=== PATIENT | male | born 1945 | race American Indian/Alaskan Native ===

== ENCOUNTER 2018-02-10 13:11 | Day surgery (SDC) | payer MEDICARE, OTHER ==
[~2018-02-10] VITALS: Ht 167.6 cm; Wt 99.4 kg
[2018-02-10] MEDS ORDERED: FENO145 (13:47)
[2018-02-10] MEDS ORDERED: SIMV80 (13:47)
[2018-02-10] MEDS ORDERED: TAMS.4ER (13:48)
[2018-02-10] MEDS ORDERED: AMLO5 (13:48)
[2018-02-10] MEDS ORDERED: SITA100T2 (13:48)
[2018-02-10] MEDS ORDERED: METF500C (13:49)
[2018-02-10] MEDS ORDERED: Avodart0.5 MG (13:49)
[2018-02-10] MEDS ORDERED: RAMI5 (13:50)
[2018-02-10] MEDS ORDERED: Lo-Dose Aspirin81 MG (13:50)
== END 2018-02-10 15:20 | disposition home or self-care (01) ==
LOC: ORSCSDS 13:11
PROVIDERS: Internal Medicine Gastroenterology
PROC: 0DBM8ZX Excision of Descending Colon, Via Natural or Artificial Opening Endoscopic, Diagnostic (ICD-10-PCS; principal; 2018-02-10 14:30)
PROC: 0DBN8ZX Excision of Sigmoid Colon, Via Natural or Artificial Opening Endoscopic, Diagnostic (ICD-10-PCS; principal; 2018-02-10 14:30)
DX: Z12.11 Encounter for screening for malignant neoplasm of colon (principal); D12.4 Benign neoplasm of descending colon; D12.5 Benign neoplasm of sigmoid colon; K64.8 Other hemorrhoids; K57.30 Diverticulosis of large intestine without perforation or abscess without bleeding; Z80.0 Family history of malignant neoplasm of digestive organs; Z86.010 Personal history of colon polyps; E11.9 Type 2 diabetes mellitus without complications; G47.33 Obstructive sleep apnea (adult) (pediatric); Z87.891 Personal history of nicotine dependence; I10 Essential (primary) hypertension; Z79.84 Long term (current) use of oral hypoglycemic drugs; Z79.899 Other long term (current) drug therapy
CPT/HCPCS: 82947; 88305; J7120

== ENCOUNTER 2022-03-16 23:23 | Emergency (ER) | payer MEDICARE, OTHER ==
[~2022-03-16] VITALS: Ht 167.6 cm; Wt 90.7 kg
[~2022-03-16 23:23] MED LIST: AMLO5; Avodart0.5 MG; FENO145; Lo-Dose Aspirin81 MG; METF500C; RAMI5; SIMV80; SITA100T2; TAMS.4ER
[2022-03-17 00:06] LABS: Source, Urine Clean Catch
[2022-03-17 00:13] LABS: Bilirubin, Urine Neg (Neg); Blood, Urine 5+ (Neg); Glucose Qualitative, Urine Neg (Neg); Ketones, Urine Neg (Neg); Leukocyte Esterase, Urine 2+ (Neg); Nitrite, Urine Neg (Neg); Protein, Urine 2+ (Neg); Urobilinogen, Urine NORM (Normal); pH, Urine 6.5 (5.0-8.0)
[2022-03-17 00:24] LABS: Appearance, Urine Hazy (Clear); Color, Urine Red (P-Yellow)
[2022-03-17 00:25] LABS: Bacteria Rare /hpf; Red Blood Cells, Urine TNTC /hpf (0-2); Squamous Epithelial Cells Not Seen /hpf (Few)
[2022-03-17] MEDS ORDERED: CEFD300 PO (00:58)
== END 2022-03-17 01:10 | disposition home or self-care (01) ==
LOC: ER 23:23
PROVIDERS: Physician Assistant
DX: N39.0 Urinary tract infection, site not specified (principal); R31.9 Hematuria, unspecified; E11.9 Type 2 diabetes mellitus without complications; Z79.899 Other long term (current) drug therapy; Z79.84 Long term (current) use of oral hypoglycemic drugs; Z79.82 Long term (current) use of aspirin
CPT/HCPCS: 81001; 87077; 87086; 87186; 99283; A9270

== ENCOUNTER 2022-11-07 11:27 | Emergency (ER) | payer MEDICARE, OTHER ==
[~2022-11-07] VITALS: Ht 167.6 cm; Wt 99.8 kg
[~2022-11-07 11:27] MED LIST changes: +CEFD300 PO
[2022-11-07] MEDS ORDERED: BACLOFEN5 M1 PO (12:43)
== END 2022-11-07 12:52 | disposition home or self-care (01) ==
LOC: ER 11:27
DX: M62.830 Muscle spasm of back (principal); E11.9 Type 2 diabetes mellitus without complications; Z98.890 Other specified postprocedural states; Z79.899 Other long term (current) drug therapy; Z79.84 Long term (current) use of oral hypoglycemic drugs; Z87.891 Personal history of nicotine dependence
CPT/HCPCS: A9270

== ENCOUNTER → 2022-12-08 | Outpatient (CLI) | payer MEDICARE, OTHER ==
[~2022-12-08] MED LIST changes: +BACLOFEN5 M1 PO; +CEPH500 PO
[2022-12-08 13:32] LABS: Hematocrit 41.3 % (37.0-53.0); Mean Corpuscular HGB 32.6 pg (26.0-34.0); Mean Corpuscular HGB Conc 33.9 g/dL (31.5-36.5); Mean Corpuscular Volume 96 fL (80-100); NRBC ABSOLUTE 0.02 K/mm3 (0.00-0.02); NRBC Auto 0.1 /100 WBC (0.0-0.2); RDW Coefficient Variation 14.9 % (11.7-14.2); RDW Standard Deviation 51.9 fL (35.1-46.3); Red Blood Cell Count 4.29 M/mm3 (4.30-5.90); White Blood Cell Count 25.67 K/mm3 (4.00-11.30)
[2022-12-08 13:42] LABS: Albumin/Globulin Ratio 0.7 (0.8-1.8); Bilirubin, Total 0.8 mg/dL (0.1-1.0); Bun/Creatinine Ratio 14.2 (12.0-20.0); Calcium, Blood 8.9 mg/dL (8.5-10.1); Creatinine, Blood 2.26 mg/dL (0.60-1.20); Globulin, Blood 4.4 g/dL (2.2-4.0); Potassium, Blood 3.5 mmol/L (3.5-5.5); Total Protein, Blood 7.4 g/dL (6.4-8.2)
[2022-12-08 13:46] LABS: Magnesium, Blood 0.9 mg/dL (1.6-2.4)
[2022-12-08 14:21] LABS: BAND PERCENT MAN 18 % (0-8); BASOPHILS PERCENT MAN 0 % (0-2); EOSINOPHILS PERCENT MAN 0 % (0-6); LYMPHOCYTES ABSOLUTE MAN 0.25 K/mm3 (0.84-5.20); LYMPHOCYTES PERCENT MAN 1 % (21-46); METAMYELOCYTE ABSOLUTE MAN 1.79 K/mm3 (0.00-0.00); METAMYELOCYTE PERCENT MAN 7 % (0-0); MONOCYTES ABSOLUTE MAN 0.77 K/mm3 (0.16-1.47); MONOCYTES PERCENT MAN 3 % (4-13); NEUTROPHILS ABSOLUTE MAN 22.84 K/mm3 (1.96-9.15); SEG NEUTROPHILS PERCENT MAN 71 % (41-73); TOTAL CELLS COUNTED 100
[2022-12-08 14:33] LABS: Mean Platelet Volume 10.4 fL (9.1-12.4); Platelet Count 107 K/mm3 (150-400)
== END | disposition home or self-care (01) ==
LOC: LAB 13:25 → LAB SHORT 13:25
PROVIDERS: Physician Assistant
DX: R25.2 Cramp and spasm (principal)
CPT/HCPCS: 80053; 83735; 85025

== ENCOUNTER → 2022-12-09 | Outpatient (CLI) | payer MEDICARE, OTHER ==
[2022-12-09 12:06] LABS: Hematocrit 39.9 % (37.0-53.0); Hemoglobin 13.5 g/dL (13.5-17.5); Mean Corpuscular HGB 32.1 pg (26.0-34.0); Mean Corpuscular HGB Conc 33.8 g/dL (31.5-36.5); Mean Corpuscular Volume 95 fL (80-100); RDW Coefficient Variation 14.6 % (11.7-14.2); RDW Standard Deviation 50.5 fL (35.1-46.3); Red Blood Cell Count 4.21 M/mm3 (4.30-5.90); White Blood Cell Count 21.19 K/mm3 (4.00-11.30)
[2022-12-09 12:15] LABS: Albumin, Blood 2.9 g/dL (3.4-5.0); Albumin/Globulin Ratio 0.7 (0.8-1.8); Bilirubin, Total 0.5 mg/dL (0.1-1.0); Bun/Creatinine Ratio 23.1 (12.0-20.0); Calcium, Blood 8.5 mg/dL (8.5-10.1); Creatinine, Blood 1.82 mg/dL (0.60-1.20); Globulin, Blood 4.2 g/dL (2.2-4.0); Magnesium, Blood 1.3 mg/dL (1.6-2.4); Phosphorus, Blood 2.1 mg/dL (2.5-4.9); Potassium, Blood 2.9 mmol/L (3.5-5.5); Total Protein, Blood 7.1 g/dL (6.4-8.2)
[2022-12-09 13:06] LABS: BAND PERCENT MAN 9 % (0-8); BASOPHILS ABSOLUTE MAN 0.21 K/mm3 (0.00-0.23); BASOPHILS PERCENT MAN 1 % (0-2); EOSINOPHILS ABSOLUTE MAN 0.63 K/mm3 (0.00-0.68); EOSINOPHILS PERCENT MAN 3 % (0-6); LYMPHOCYTES ABSOLUTE MAN 1.48 K/mm3 (0.84-5.20); LYMPHOCYTES PERCENT MAN 7 % (21-46); MONOCYTES ABSOLUTE MAN 1.69 K/mm3 (0.16-1.47); MONOCYTES PERCENT MAN 8 % (4-13); NEUTROPHILS ABSOLUTE MAN 17.16 K/mm3 (1.96-9.15); SEG NEUTROPHILS PERCENT MAN 72 % (41-73); TOTAL CELLS COUNTED 100
[2022-12-09 13:10] LABS: Platelet Count 126 K/mm3 (150-400)
== END | disposition home or self-care (01) ==
LOC: LAB SHORT 12:00 → LAB 12:00
PROVIDERS: Emergency Medicine
DX: E83.42 Hypomagnesemia (principal)
CPT/HCPCS: 80053; 83735; 84100; 85025

== ENCOUNTER 2024-03-14 08:09 | Emergency (ER) | payer MEDICARE, OTHER ==
[~2024-03-14] VITALS: Ht 167.6 cm; Wt 104.3 kg
[~2024-03-14 08:09] MED LIST changes: +ALFU10 PO; +ALLEGRA ALLERG180 MG PO; +FURO20 PO; +IBU800 MG PO; +PIOG15 PO; +SILD50TA PO; +TRAM50 PO; +XARELTO20 MG PO
[2024-03-14] MEDS ORDERED: Albuterol 2.5 MG/3 ML VIAL INH ONE (08:40)
[2024-03-14 08:51] LABS: BASOPHILS ABSOLUTE AUTO 0.03 K/mm3 (0.00-0.23); BASOPHILS PERCENT AUTO 1 % (0-2); EOSINOPHILS ABSOLUTE AUTO 0.33 K/mm3 (0.00-0.68); EOSINOPHILS PERCENT AUTO 5 % (0-6); Hematocrit 48.4 % (37.0-53.0); Hemoglobin 15.8 g/dL (13.5-17.5); IMMATURE GRAN ABSOLUTE AUTO 0.03 K/mm3 (0.00-0.10); IMMATURE GRAN PERCENT AUTO 1 % (0-1); LYMPHOCYTES ABSOLUTE AUTO 0.61 K/mm3 (0.84-5.20); LYMPHOCYTES PERCENT AUTO 10 % (21-46); MONOCYTES ABSOLUTE AUTO 0.53 K/mm3 (0.16-1.47); MONOCYTES PERCENT AUTO 8 % (4-13); Mean Corpuscular HGB 32.2 pg (26.0-34.0); Mean Corpuscular HGB Conc 32.6 g/dL (31.5-36.5); Mean Corpuscular Volume 99 fL (80-100); Mean Platelet Volume 11.9 fL (9.1-12.4); NEUTROPHILS ABSOLUTE AUTO 4.81 K/mm3 (1.96-9.15); NEUTROPHILS PERCENT AUTO 76 % (41-73); Platelet Count 166 K/mm3 (150-400); RDW Coefficient Variation 14.8 % (11.7-14.2); RDW Standard Deviation 54.4 fL (35.1-46.3); Red Blood Cell Count 4.91 M/mm3 (4.30-5.90); White Blood Cell Count 6.34 K/mm3 (4.00-11.30)
[2024-03-14 09:20] LABS: Albumin, Blood 3.5 g/dL (3.4-5.0); Albumin/Globulin Ratio 0.9 (0.8-1.8); Bilirubin, Total 0.6 mg/dL (0.1-1.0); Bun/Creatinine Ratio 12.5 (12.0-20.0); Calcium, Blood 8.8 mg/dL (8.5-10.1); Creatinine, Blood 0.96 mg/dL (0.60-1.20); Globulin, Blood 4.1 g/dL (2.2-4.0); Potassium, Blood 3.1 mmol/L (3.5-5.5); Total Protein, Blood 7.6 g/dL (6.4-8.2)
[2024-03-14] MEDS ORDERED: Magnesium Sulf 2 GM/Water 50ML 50 ML IV ONE (09:50)
[2024-03-14 10:10] LABS: Influenza A, PCR NEGATIVE (NEGATIVE); Influenza B, PCR NEGATIVE (NEGATIVE); Resp Syncytial Virus, PCR NEGATIVE (NEGATIVE); SARS-Cov-2 (COVID-19) PCR, MMC NEGATIVE (NEGATIVE)
[2024-03-14] MEDS ORDERED: MethylPREDNISolone Sod Succ 125 MG Vial IV ONE (13:20)
[2024-03-14] MEDS ORDERED: PRED20 PO (13:23)
[2024-03-14 13:58] VITALS: BP 134/70
== END 2024-03-14 14:00 | disposition home or self-care (01) ==
LOC: ER 08:09
PROVIDERS: Emergency Medicine
DX: J40 Bronchitis, not specified as acute or chronic (principal); E11.9 Type 2 diabetes mellitus without complications; Z87.891 Personal history of nicotine dependence; Z79.899 Other long term (current) drug therapy; Z79.82 Long term (current) use of aspirin; Z79.84 Long term (current) use of oral hypoglycemic drugs
CPT/HCPCS: 0241U; 71046; 71260; 80053; 83880; 84484; 85025; 93005; 93010; 94640; 94664; 96365-59; 96375; 99285-25; J2919; J3475; Q9967

== ENCOUNTER 2024-10-30 14:13 | Observation (INO) | payer MEDICARE, OTHER ==
[~2024-10-30] VITALS: Ht 170.2 cm; Wt 100.3 kg
[~2024-10-30 14:13] MED LIST changes: -ASPI81CH PO; -Simvastatin80 MG PO
[2024-10-30 14:52] LABS: BASOPHILS ABSOLUTE AUTO 0.03 K/mm3 (0.00-0.23); BASOPHILS PERCENT AUTO 0 % (0-2); EOSINOPHILS ABSOLUTE AUTO 0.01 K/mm3 (0.00-0.68); EOSINOPHILS PERCENT AUTO 0 % (0-6); Hematocrit 42.9 % (37.0-53.0); Hemoglobin 15.2 g/dL (13.5-17.5); IMMATURE GRAN ABSOLUTE AUTO 0.07 K/mm3 (0.00-0.10); IMMATURE GRAN PERCENT AUTO 1 % (0-1); LYMPHOCYTES ABSOLUTE AUTO 0.37 K/mm3 (0.84-5.20); LYMPHOCYTES PERCENT AUTO 4 % (21-46); MONOCYTES ABSOLUTE AUTO 0.25 K/mm3 (0.16-1.47); MONOCYTES PERCENT AUTO 3 % (4-13); Mean Corpuscular HGB 34.4 pg (26.0-34.0); Mean Corpuscular HGB Conc 35.4 g/dL (31.5-36.5); Mean Corpuscular Volume 97 fL (80-100); NEUTROPHILS PERCENT AUTO 92 % (41-73); Platelet Count 204 K/mm3 (150-400); RDW Coefficient Variation 17.3 % (11.7-14.2); RDW Standard Deviation 60.6 fL (35.1-46.3); Red Blood Cell Count 4.42 M/mm3 (4.30-5.90); White Blood Cell Count 8.93 K/mm3 (4.00-11.30)
[2024-10-30 14:59] LABS: Mean Platelet Volume 13.1 fL (9.1-12.4)
[2024-10-30] MEDS ORDERED: Ondansetron HCl 2 MG / ML 2ML Vial IV ONE (15:05)
[2024-10-30] MEDS ORDERED: Morphine Sulfate 4 MG/1 ML Injection IV ONE (15:25)
[2024-10-30 16:48] LABS: Albumin, Blood 3.4 g/dL (3.4-5.0); Albumin/Globulin Ratio 0.9 (0.8-1.8); Bilirubin, Total 0.7 mg/dL (0.1-1.0); Bun/Creatinine Ratio 18.2 (12.0-20.0); Calcium, Blood 9.1 mg/dL (8.5-10.1); Creatinine, Blood 0.93 mg/dL (0.60-1.20); Globulin, Blood 3.8 g/dL (2.2-4.0); Total Protein, Blood 7.2 g/dL (6.4-8.2)
[2024-10-30] MEDS ORDERED: Potassium Chloride 20 MEQ TabCR PO ONE ×2 (18:05→20:25)
[2024-10-30] MEDS ORDERED: FLU VACC TS2024-25(6MOS UP)/PF 45 MCG/0.5 ML SYRINGE IM SCH (20:15)
[2024-10-30] MEDS ORDERED: FentaNYL Citrate 50 MCG/ML 2 ML Injection IV PRN (20:15)
[2024-10-30] MEDS ORDERED: NS 1,000 ML IV SCH (20:15)
[2024-10-30] MEDS ORDERED: Ondansetron HCl 2 MG / ML 2ML Vial IV PRN (20:20)
[2024-10-30] MEDS ORDERED: Nitroglycerin 0.4 MG SUBL SL PRN (20:20)
[2024-10-30] MEDS ORDERED: Mag Hydrox/Al Hydrox/Simeth 18 ML,Lidocaine 2% Viscous Soln 9 ML,Atropine/Scopalam/Hyos... PO PRN (20:25)
[2024-10-30] MEDS ORDERED: Enoxaparin 40 MG/0.4 ML SYR SC SCH (21:00)
[2024-10-30 21:51] VITALS: BP 160/93
[2024-10-31 02:09] LABS: BASOPHILS ABSOLUTE AUTO 0.02 K/mm3 (0.00-0.23); BASOPHILS PERCENT AUTO 0 % (0-2); EOSINOPHILS ABSOLUTE AUTO 0.02 K/mm3 (0.00-0.68); EOSINOPHILS PERCENT AUTO 0 % (0-6); Hematocrit 41.4 % (37.0-53.0); Hemoglobin 14.1 g/dL (13.5-17.5); IMMATURE GRAN ABSOLUTE AUTO 0.06 K/mm3 (0.00-0.10); IMMATURE GRAN PERCENT AUTO 1 % (0-1); LYMPHOCYTES ABSOLUTE AUTO 0.73 K/mm3 (0.84-5.20); LYMPHOCYTES PERCENT AUTO 7 % (21-46); MONOCYTES ABSOLUTE AUTO 0.73 K/mm3 (0.16-1.47); MONOCYTES PERCENT AUTO 7 % (4-13); Mean Corpuscular HGB 34.3 pg (26.0-34.0); Mean Corpuscular HGB Conc 34.1 g/dL (31.5-36.5); Mean Corpuscular Volume 101 fL (80-100); NEUTROPHILS ABSOLUTE AUTO 9.08 K/mm3 (1.96-9.15); NEUTROPHILS PERCENT AUTO 85 % (41-73); Platelet Count 165 K/mm3 (150-400); RDW Coefficient Variation 15.8 % (11.7-14.2); Red Blood Cell Count 4.11 M/mm3 (4.30-5.90); White Blood Cell Count 10.64 K/mm3 (4.00-11.30)
[2024-10-31 02:19] LABS: Albumin, Blood 3.2 g/dL (3.4-5.0); Albumin/Globulin Ratio 0.9 (0.8-1.8); Bilirubin, Total 0.6 mg/dL (0.1-1.0); Calcium, Blood 8.6 mg/dL (8.5-10.1); Creatinine, Blood 0.88 mg/dL (0.60-1.20); Globulin, Blood 3.5 g/dL (2.2-4.0); Potassium, Blood 3.3 mmol/L (3.5-5.5); Total Protein, Blood 6.7 g/dL (6.4-8.2)
[2024-10-31 02:38] VITALS: BP 164/93
[2024-10-31] MEDS ORDERED: Magnesium Sulf 2 GM/Water 50ML 50 ML IV ONE (04:30)
--- NOTE | 2024-10-31 07:12 | NUR ---
Shift Summary Pt admitted to this unit from ED for chest pain. EKG from [place] showed afib at 73, troponins were 60-62. He was given morphene in the ED and felt better upon arrival but this AM his chest pain has returned. I gave PRN SL Nitro x2 tablets and fentanyl which is showing little relief. He is on tele currently running sinus [place] in the 50's. When listening to his heart the rythm sounds irregular. Information and concerns passed onto oncoming nurse. Pt is AOx4, 1 SBA to [facility].
[2024-10-31 07:28] VITALS: BP 137/77
[2024-10-31] MEDS ORDERED: Insulin Human Lispro 100 Units/ML 3ML Syringe SC SCH (07:30)
--- NOTE | 2024-10-31 07:31 | NUR ---
PT EXPERIENCING INCREASED CHEST PAIN AFTER RECIEVING NITRO AND FENTANYL. PER SPOUSE MORPHINE WAS GIVEN IN ER AND SEEMED TO PROVIDE MUCH RELIEF. DR. CABLELO NOTIFIED, MD TO ORDER PAIN MEDICATION.
[2024-10-31] MEDS ORDERED: Morphine Sulfate 4 MG/1 ML Injection IV PRN (07:35)
--- NOTE | 2024-10-31 08:00 | NUR ---
PT REASSESSED AFTER MORPHINE ADMIN. PT IS NOW RESTING WITH EYES CLOSED, PRIOR TO THIS PT WAS TOSSING AND TURNING IN BED. CONT PULSE OX SET UP IN ROOM. PT REPORTS CPAP USE AT NIGHT. O2 ATTACHED TO WALL IF NEEDED
[2024-10-31] MEDS ORDERED: Lisinopril 20 MG Tab PO SCH (09:00)
--- NOTE | 2024-10-31 16:43 | NUR ---
SUMMARY PT DENIES CHEST PAIN AT THE TIME OF THIS NOTE, PT IS TEARFUL AND EXPRESSES ANXIETY OVER HIS CURRENT SITUATION. DR. ROMO ORDERED BUSPAR 10 MG TID. PT AND SPOUSE APPRECIATE ORDER. PT IS SBA TO BATHROOM, 1L O2, HOME CPAP IS SET UP. CONT BIOX IN ROOM. PT IS ALERT AND ORIENTED X4, ABLE TO EXPRESS NEEDS. FAMILY AT BEDSIDE. CT OF ABD IS PENDING RESULTS.
[2024-10-31] MEDS ORDERED: BusPIRone HCl 10 MG Tab PO SCH (16:45)
[2024-10-31] MEDS ORDERED: HYDROmorphone HCl/Pf 1MG SYR IV PRN (17:30)
[2024-10-31] MEDS ORDERED: Piperacillin/Tazobactam Sod 3.375 GM in NS 100 ML IV SCH (18:00)
[2024-10-31 19:56] VITALS: BP 122/57
[2024-10-31] MEDS ORDERED: NS 1,000 ML IV ONE (22:00)
[2024-11-01] VITALS (19 sets, daily range): BP systolic 134–171; BP diastolic 63–87
--- NOTE | 2024-11-01 03:49 | NUR ---
SHIFT SUMMARY PT IS A/O X4, ABLE TO MAKE HIS NEEDS KNOWN AND COOPERATIVE WITH CARE. PT AND VERY PLEASANT. MEDICATED FOR EPIGASTRIC PAIN PER EMAR WITH GOOD EFFECTIVNESS. NS @75 09/30 BAG INFUSING ORDERED. ZOSYN INFUSED ORDERED. TELE: SR @65, PT DENIES PAIN/PRESSURE/SOB. CPAP DURING THIS SHIFT. Q6 B AND 125. BED AT THE LOWEST POSITION, CALL LIGHT W/I REACH. PER CLINICAL REHABILITATION SPECIALIST PT IS ON OR LIST FOR SURGERY TODAY.
[2024-11-01] MEDS ORDERED: LORazepam 2 MG/ML 1ML Injection IV ONE (05:30)
--- NOTE | 2024-11-01 05:31 | NUR ---
NEW ONE-TIME TELEPHONE ORDER OF IV ATIVAN 0.25MG RECEIVED FROM THE ON-CALL HOSPITALIST . ENTERED TO [facility], SEE EMAR. NO ADDITIONAL NEW ORDERS AT THIS TIME.
--- NOTE | 2024-11-01 09:08 | NUR ---
TO OR VIA GURNEY ACCOMPANIED BY FAMILY
[2024-11-01] MEDS ORDERED: Indocyanine Green 25 MG Vial IV ONE (09:25)
[2024-11-01] MEDS ORDERED: Ipratropium/Albuterol SulF 2.5-0.5MG/3 ML Amp ONE (09:50)
[2024-11-01] MEDS ORDERED: Bupivacaine 0.5% HCl 5 MG/ML 30MLVIAL ONE (10:00)
[2024-11-01] MEDS ORDERED: Etomidate 2MG / ML 10ML Vial ONE (10:41)
[2024-11-01] MEDS ORDERED: FentaNYL Citrate 50 MCG/ML 2 ML Injection ONE ×2 (10:42→13:39)
[2024-11-01] MEDS ORDERED: Lidocaine HCl 2% 20 ML MDV ONE (10:43)
[2024-11-01] MEDS ORDERED: SuccINYLCHOLINE Chloride 100 MG/5 ML 5MLSYR ONE (10:53)
[2024-11-01] MEDS ORDERED: Rocuronium Bromide 10 MG/ML 5ML Injection IV ONE ×2 (10:53→11:32)
[2024-11-01] MEDS ORDERED: Ondansetron HCl 2 MG / ML 2ML Vial ONE (10:55)
[2024-11-01] MEDS ORDERED: Dexamethasone Sod Phos 10 MG/ML 1ML VIAL ONE (10:55)
[2024-11-01] MEDS ORDERED: Labetalol HCL 5 MG/ML 4ML Injection (Single Dose) ONE (10:56)
[2024-11-01] MEDS ORDERED: Sugammadex Sodium 200 MG/2ML SDV (100 MG/ML) ONE (12:33)
[2024-11-01] MEDS ORDERED: propofoL 20 ML IV ONE (12:43)
[2024-11-01] MEDS ORDERED: OxyCODONE HCL 5 MG TAB PO PRN (14:35)
--- NOTE | 2024-11-01 14:45 | NUR ---
1420 rerturned to room, drowsy able to answer questions appropriately. abd with 4 lap insites clean, dry and intact with wound glue in place
--- NOTE | 2024-11-01 16:55 | NUR ---
SUMMARY PT RESTING COMFORTABLY AT END OF SHIFT. DENIES ABD.CHEST PAIN AT THIS TIME. MALE PURWIC IN PLACE DUE TO URGENCY AND RISK OF FALLS, SMALL SNACK TOLORATED POST OP, SITES CLEAN WITHOUT DRESSING. ABLE TO MAKE NEEDS KNOWN. PLAN TO DISCHARGE HOME TOMORROW.
[2024-11-01] MEDS ORDERED: ASPI81CH PO (18:06)
[2024-11-01] MEDS ORDERED: Simvastatin80 MG PO (18:06)
[2024-11-02] MEDS ORDERED: LORazepam 0.5 MG Tab PO ONE (02:15)
[2024-11-02 04:15] VITALS: BP 133/77
--- NOTE | 2024-11-02 06:33 | NUR ---
SHIFT SUMMARY: Pt admitted for chest pain and is a full code. Is alert and able to make needs known. ADLs have been SBA. pain has been managed with PRN medication. Trino reports sinus in the 60s with PVCs. ABD surgical sites are open to air but approximated with surgical glue. Light pink to wound edges and mild tenderness stated.
[2024-11-02 07:29] VITALS: BP 155/85
[2024-11-02] MEDS ORDERED: Potassium Chloride 20 MEQ TabCR PO ONE (08:00)
[2024-11-02] MEDS ORDERED: MetFORMIN HCl 500 mg PO SCH (08:00)
[2024-11-02] MEDS ORDERED: Fenofibrate, Micronized 134 MG Capsule PO SCH (09:00)
[2024-11-02] MEDS ORDERED: Alogliptin Benzoate 25 MG TAB PO SCH (09:00)
[2024-11-02] MEDS ORDERED: Tamsulosin HCl 0.4 MG Cap PO SCH (09:00)
[2024-11-02] MEDS ORDERED: Aspirin 81 MG Chew PO SCH (09:00)
[2024-11-02] MEDS ORDERED: Dutasteride 0.5 MG Cap PO SCH (09:00)
[2024-11-02] MEDS ORDERED: AmLODIPine Besylate 5 MG Tab PO SCH (09:00)
[2024-11-02] MEDS ORDERED: Pioglitazone HCl 15 MG Tab PO SCH (09:00)
[2024-11-02] MEDS ORDERED: Sildenafil Citrate 20 MG Tab PO SCH (09:20)
[2024-11-02] MEDS ORDERED: BUSP5 PO (10:45)
[2024-11-02] MEDS ORDERED: OXYC5 PO (10:45)
[2024-11-02] MEDS ORDERED: MINIPRESS1 MG PO (10:45)
--- NOTE | 2024-11-02 11:51 | NUR ---
PT DISCHARGED HOME WITH SPOUSE AT BEDSIDE. PT IS ALERT AND ORIENTED X4, INDEPENDENT. DENIES ABD PAIN. DISCUSSED DISCHARGE INSTRUCTIONS WITH PT AND SPOUSE, NO QUESTIONS OR CONCERNS AT TIME OF DISCHARGE
[2024-11-02] MEDS ORDERED: Atorvastatin 40 MG Tab PO SCH (21:00)
== END 2024-11-02 11:41 | disposition home or self-care (01) ==
LOC: ER 14:13 → MEDS 14:14 → ERHOLD 14:14 → MEDS 21:48
PROVIDERS: Emergency Medicine; Physician Assistant; Surgery; ADMIT Internal Medicine
PROC: 0FT44ZZ Resection of Gallbladder, Percutaneous Endoscopic Approach (ICD-10-PCS; principal; 2024-11-01 09:45)
PROC: BF53200 Other Imaging of Gallbladder and Bile Ducts using Fluorescing Agent, Indocyanine Green Dye, Intraoperative (ICD-10-PCS; principal; 2024-11-01 09:45)
DX: K80.00 Calculus of gallbladder with acute cholecystitis without obstruction (principal); K82.1 Hydrops of gallbladder; E87.6 Hypokalemia; E83.42 Hypomagnesemia; R07.9 Chest pain, unspecified; I10 Essential (primary) hypertension; E11.9 Type 2 diabetes mellitus without complications; E78.5 Hyperlipidemia, unspecified; G47.33 Obstructive sleep apnea (adult) (pediatric); N40.0 Benign prostatic hyperplasia without lower urinary tract symptoms; N52.9 Male erectile dysfunction, unspecified; M51.369 Other intervertebral disc degeneration, lumbar region without mention of lumbar back pain or lower extremity pain; M48.061 Spinal stenosis, lumbar region without neurogenic claudication; Z87.891 Personal history of nicotine dependence; Z79.82 Long term (current) use of aspirin; Z79.84 Long term (current) use of oral hypoglycemic drugs; Z79.899 Other long term (current) drug therapy
CPT/HCPCS: 36415; 71046; 71275; 74177; 80053; 82947; 83690; 83735; 83880; 84484; 85025; 85379; 88304; 93005; 93010; 93306; 94762; 96365; 96367; 96372; 96374; 96375; 96376; 99285-25; A9270; G0378; J0330; J1100; J1171; J1650; J2060; J2270; J2405; J2543; J2704; J3010; J3475; J7030; Q9967

== ENCOUNTER → 2024-10-30 | Outpatient (CLI) | payer MEDICARE, OTHER ==
[~2024-10-30] MED LIST changes: -AMLO5; +AMLO5 PO; +ASPI81CH PO; -Avodart0.5 MG; +Avodart0.5 MG PO; -FENO145; +FENO145 PO; -METF500C; +METF500C PO; +PRED20 PO; -RAMI5; +RAMI5 PO; -SITA100T2; +SITA100T2 PO; +Simvastatin80 MG PO; -TAMS.4ER; +TAMS.4ER PO
[2024-10-30 14:07] LABS: BASOPHILS ABSOLUTE AUTO 0.04 K/mm3 (0.00-0.23); BASOPHILS PERCENT AUTO 0 % (0-2); EOSINOPHILS ABSOLUTE AUTO 0.02 K/mm3 (0.00-0.68); EOSINOPHILS PERCENT AUTO 0 % (0-6); Hematocrit 45.6 % (37.0-53.0); Hemoglobin 15.3 g/dL (13.5-17.5); IMMATURE GRAN ABSOLUTE AUTO 0.08 K/mm3 (0.00-0.10); IMMATURE GRAN PERCENT AUTO 1 % (0-1); LYMPHOCYTES ABSOLUTE AUTO 0.47 K/mm3 (0.84-5.20); LYMPHOCYTES PERCENT AUTO 5 % (21-46); MONOCYTES ABSOLUTE AUTO 0.34 K/mm3 (0.16-1.47); MONOCYTES PERCENT AUTO 4 % (4-13); Mean Corpuscular HGB 33.2 pg (26.0-34.0); Mean Corpuscular HGB Conc 33.6 g/dL (31.5-36.5); Mean Corpuscular Volume 99 fL (80-100); Mean Platelet Volume 11.1 fL (9.1-12.4); NEUTROPHILS ABSOLUTE AUTO 7.95 K/mm3 (1.96-9.15); NEUTROPHILS PERCENT AUTO 89 % (41-73); Platelet Count 191 K/mm3 (150-400); RDW Coefficient Variation 15.7 % (11.7-14.2); RDW Standard Deviation 57.1 fL (35.1-46.3); Red Blood Cell Count 4.61 M/mm3 (4.30-5.90)
[2024-10-30 14:17] LABS: Albumin, Blood 3.7 g/dL (3.4-5.0); Albumin/Globulin Ratio 0.9 (0.8-1.8); Bilirubin, Total 0.6 mg/dL (0.1-1.0); Bun/Creatinine Ratio 13.6 (12.0-20.0); Calcium, Blood 9.6 mg/dL (8.5-10.1); Creatinine, Blood 1.25 mg/dL (0.60-1.20); Globulin, Blood 4.2 g/dL (2.2-4.0); Potassium, Blood 3.3 mmol/L (3.5-5.5); Total Protein, Blood 7.9 g/dL (6.4-8.2)
== END | disposition home or self-care (01) ==
LOC: LAB SHORT 13:59
PROVIDERS: Chiropractor
DX: R07.9 Chest pain, unspecified (principal)
CPT/HCPCS: 80053; 83690; 83880; 84484; 85025; 85379